=== PATIENT | male | born 1990 | race Caucasian/White ===

== ENCOUNTER 2016-09-26 21:20 | Emergency (ER) | payer MEDICAID, OTHER ==
[~2016-09-26] VITALS: Ht 175.3 cm; Wt 59.0 kg
[2016-09-26 21:29] VITALS: Ht 175.3 cm; Wt 59.0 kg
--- NOTE | 2016-09-26 22:27 | ERA ---
ER Documentation Chief Complaint Date/Time DATE: 09/26/16 TIME: 22:26 Chief Complaint states "i'm hearing radios in my head." HPI The patient is a 26-year-old male, presenting to the ER because of positive hallucination. He had similar symptoms previously and has seen a psychiatrist previously; however he stopped taking the medication. He denies suicidal or homicidal ideation, visual hallucination. He is homeless, denies headache, neck pain, chest pain, dyspnea, abdominal pain, vomiting, dysuria, diarrhea, constipation. He smokes a pack a day, denies drinking, smokes marijuana Past medical/surgical history: None ROS All systems reviewed and are negative except as per history of present illness. Allergies Allergies: Coded Allergies: No Known Drug Allergies (Verified Allergy, Unknown, 09/26/16) PMhx/Soc Medical and Surgical Hx: pt denies Medical Hx, pt denies Surgical Hx History of Surgery: No Anesthesia Reaction: No Hx Neurological Disorder: No Hx Respiratory Disorders: No Hx Cardiac Disorders: No Hx Psychiatric Problems: Yes (PT IS C/O AUDITORY HALLUCINATIONS; NO DTO/DTS) Hx Miscellaneous Medical Probl: No Hx Alcohol Use: Yes (WHEN HE CAN AFFORD) Hx Substance Use: Yes (MARIJUANA) Hx Tobacco Use: Yes Smoking Status: Current every day smoker Physical Exam Vitals Vital Signs Date Time Temp Pulse Resp B/P Pulse Ox O2 Delivery O2 Flow Rate FiO2 09/26/16 23:26 87 16 128/77 100 Room Air 09/26/16 21:29 98.2 93 20 126/71 96 Physical Exam Const: No acute distress. Unkempt Head: Atraumatic. Eyes: Normal Conjunctiva. ENT: Normal External Ears, Nose and Mouth. Neck: Full range of motion. No meningismus. Resp: Clear to auscultation bilaterally. Cardio: Regular rate and rhythm. Abd: Soft, non distended, normal bowel sounds, non tender. Skin: No petechiae or rashes. Back: No midline or flank tenderness. Ext: No cyanosis, or edema. Neur: Awake and alert. No focal deficit Psych: Depressed and hallucinated. Result Diagram: 09/26/16214409/26/162144 Results 24 hrs Laboratory Tests Test 09/26/16 21:45 White Blood Count 12.310^3/ul Red Blood Count 4.6410^6/ul Hemoglobin 15.3g/dl Hematocrit 42.9% Mean Corpuscular Volume 92.5fl Mean Corpuscular Hemoglobin 33.0pg Mean Corpuscular Hemoglobin Concent 35.7g/dl Red Cell Distribution Width 11.8% Platelet Count 93834^3/UL Mean Platelet Volume 8.8fl Neutrophils % 64.7% Lymphocytes % 24.1% Monocytes % 8.6% Eosinophils % 2.0% Basophils % 0.3% Nucleated Red Blood Cells % 0.0/100WBC Neutrophils # 7.910^3/ul Lymphocytes # 3.010^3/ul Monocytes # 1.110^3/ul Eosinophils # 0.210^3/ul Basophils # 0.010^3/ul Nucleated Red Blood Cells # 0.010^3/ul Urine Color YELLOW Urine Clarity SLIGHTLY CLOUDY Urine pH 7.0 Urine Specific [place] 1.017 Urine Ketones TRACEmg/dL Urine Nitrite NEGATIVEmg/dL Urine Bilirubin NEGATIVEmg/dL Urine Urobilinogen 2+mg/dL Urine Leukocyte Esterase TRACELeu/ul Urine Microscopic RBC 1/HPF Urine Microscopic WBC 1/HPF Urine Mucus MANY/HPF Urine Hemoglobin NEGATIVEmg/dL Urine Glucose NEGATIVEmg/dL Urine Total Protein NEGATIVEmg/dl Sodium Level 139mmol/L Potassium Level 3.9mmol/L Chloride Level 102mmol/L Carbon Dioxide Level 27mmol/L Anion Gap 14 Blood Urea Nitrogen 7mg/dl Creatinine 0.92mg/dl Glucose Level 103mg/dl Calcium Level 9.3mg/dl Total Bilirubin 0.3mg/dl Direct Bilirubin 0.00mg/dl Indirect Bilirubin 0.3mg/dl Aspartate Amino Transf (AST/SGOT) 20IU/L Alanine Aminotransferase (ALT/SGPT) 31IU/L Alkaline Phosphatase 94IU/L Total Protein 7.5g/dl Albumin 5.0g/dl Globulin 2.50g/dl Albumin/Globulin Ratio 2.00 Salicylates Level < 1.0mg/dl Urine Opiates Screen Negative Acetaminophen Level < 10.0ug/ml Urine Barbiturates Negative Urine Amphetamines Screen Negative Urine Benzodiazepines Screen Negative Urine Cocaine Screen Negative Urine Cannabinoids POSITIVE Ethyl Alcohol Level < 10.0mg/dl Procedures/MDM MEDICAL MAKING DECISION: The patient is a 26-year-old male, presenting with acute psychosis. The differential diagnoses considered include but are not limited to drug-induced psychosis, psychosis, decompensated psychiatric illness , depression, substance abuse Departure Diagnosis: Primary Impression: Psychosis Additional Impression: Substance abuse Condition: Stable Comments He is awaiting for telepsychiatrist evaluation The patient's blood pressure was elevated (>120/80) but appears stable without evidence of hypertension emergency or urgency. The patient was counseled about the risks of hypertension and urged to pursue outpatient monitoring and therapy within a week with their primary care physician. MARYBEL LANGSTON MD Sep 26, 2016 22:27
[2016-09-26 22:37] LABS: ADD SCAN DIFF NO
[2016-09-26 22:39] LABS: BASOPHILS % 0.3 % (0.0-2.0); EOSINOPHILS # 0.2 10^3/ul (0.0-0.5); HEMATOCRIT 42.9 % (42.0-52.0); HEMOGLOBIN 15.3 g/dl (14.0-18.0); LYMPHOCYTES % 24.1 % (15.0-51.0); MEAN CORPUSCULAR HGB CONC 35.7 g/dl (32.0-37.0); MEAN CORPUSCULAR VOLUME 92.5 fl (82.0-101.0); MEAN PLATELET VOLUME 8.8 fl (7.4-10.4); MONOCYTE # 1.1 10^3/ul (0.3-0.9); MONOCYTES % 8.6 % (0.0-11.0); NEUTROPHIL # 7.9 10^3/ul (1.6-7.5); NEUTROPHILS % 64.7 % (39.0-77.0); PLATELET COUNT 345 10^3/UL (140-415); RED BLOOD COUNT 4.64 10^6/ul (4.70-6.10); RED CELL DISTRIBUTION WIDTH 11.8 % (11.5-14.5); WHITE BLOOD COUNT 12.3 10^3/ul (4.8-10.8)
[2016-09-26 22:42] LABS: ADD UMIC YES; UR ASCORBIC ACID NEGATIVE (NEGATIVE); UR BILIRUBIN (Dip) NEGATIVE (NEGATIVE); UR BLOOD (Dip) NEGATIVE (NEGATIVE); UR CLARITY SLIGHTLY CLOUDY (CLEAR); UR COLOR YELLOW (YELLOW); UR GLUCOSE (Dip) NEGATIVE (NEGATIVE); UR KETONES (Dip) TRACE mg/dL (NEGATIVE); UR LEUKOCYTE ESTERASE (Dip) TRACE Leu/ul (NEGATIVE); UR MUCUS MANY /HPF (NONE SEEN); UR NITRITE (Dip) NEGATIVE (NEGATIVE); UR RBC 1 /HPF (0-5); UR SPECIFIC GRAVITY (Dip) 1.017 (1.003-1.030); UR TOTAL PROTEIN (Dip) NEGATIVE (NEGATIVE); UR UROBILINOGEN (Dip) 2+ mg/dL (NEGATIVE)
[2016-09-26 22:45] LABS: ALANINE AMINOTRANSFERASE 31 IU/L (13-69); ALKALINE PHOSPHATASE 94 IU/L (42-121); ANION GAP 14 (8-16); ASPARTATE AMINO TRANSFERASE 20 IU/L (15-46); BILIRUBIN,INDIRECT 0.3 mg/dl (0-1.1); BILIRUBIN,TOTAL 0.3 mg/dl (0.2-1.3); BLOOD UREA NITROGEN 7 mg/dl (7-20); CALCIUM 9.3 mg/dl (8.4-10.2); CARBON DIOXIDE 27 mmol/L (21-31); CHLORIDE 102 mmol/L (97-110); CREATININE 0.92 mg/dl (0.61-1.24); GLUCOSE 103 mg/dl (70-220); POTASSIUM 3.9 mmol/L (3.5-5.1); SODIUM 139 mmol/L (135-144); TOTAL PROTEIN 7.5 g/dl (6.1-8.1)
[2016-09-26 22:50] LABS: ACETAMINOPHEN < 10.0 ug/ml (10.0-30.0); ETHANOL < 10.0 mg/dl; SALICYLATE < 1.0 mg/dl (5.0-30.0)
[2016-09-26 23:08] LABS: BARBITURATES Negative (NEGATIVE); BENZODIAZEPINES Negative (NEGATIVE); CANNABINOIDS POSITIVE (NEGATIVE); COCAINE Negative (NEGATIVE); OPIATES Negative (NEGATIVE)
--- NOTE | 2016-09-27 00:17 | PSY ---
Date/Time of Note Date/Time of Note DATE: 09/26/16 TIME: 23:07 Psychiatric Subjective Eval Consent Pt consented to telemedicine: Yes Subjective Evaluation Patient location: emergency Chief Complaint: states "i'm hearing radios in my head." denies dto/dts Reason for consult: hearing voices History of present illness patient is a 26 yo male homeless with PPH of hearing voices who came to the ER stating that he has been hearing voices for the past 2 years and it is affection his functioning, it could be people talking or radio sounds, he denies feeling depressed, or anxious, denies any other psychotic symptoms, no past or current manic symptoms, he has been homeless and states that he got worst with homelessness, denies any si or hi, has been on haldol for it in the past but gave him side effect. Past psychiatric history no past admission Hospitalization: no Family History denies Medical history Problems Medical Problems: (1) Psychosis Status: Acute (2) Substance abuse Status: Acute Allergies: Coded Allergies: No Known Drug Allergies (Verified Allergy, Unknown, 09/26/16) Substance Abuse Substance abuse history: Yes (THC) Prior substance abuse treatmen: No Social History Marital status: single Level of education: hs DPA/Conservatorship: No Occupation/Residential: unemployed Psychiatric Objective Eval Review of Systems: Review of Systems: Not Applicable Physical Examination: Physical Examination: Applicable Sleep: Adequate Appetite: Adequate Energy: Adequate Interest: Adequate Mental Status Examination: Appearance: Groomed Eye Contact: Good Psychomotor Activity: Normal Behavior: Cooperative, Hostile Speech: Clear AFFECT: Appropriate Mood: Appropriate/Full Though Process: Linear Thought Content: Hallucinations Suicidal: No Homicidal: No On 72 hour hold: No Orientation: x3 Cognition: Alert Insight: Intact Judgement: Intact Attention Span: Intact Laboratory Results Laboratory Tests Test 09/26/16 21:45 White Blood Count 12.310^3/ul Red Blood Count 4.6410^6/ul Hemoglobin 15.3g/dl Hematocrit 42.9% Mean Corpuscular Volume 92.5fl Mean Corpuscular Hemoglobin 33.0pg Mean Corpuscular Hemoglobin Concent 35.7g/dl Red Cell Distribution Width 11.8% Platelet Count 12049^3/UL Mean Platelet Volume 8.8fl Neutrophils % 64.7% Lymphocytes % 24.1% Monocytes % 8.6% Eosinophils % 2.0% Basophils % 0.3% Nucleated Red Blood Cells % 0.0/100WBC Neutrophils # 7.910^3/ul Lymphocytes # 3.010^3/ul Monocytes # 1.110^3/ul Eosinophils # 0.210^3/ul Basophils # 0.010^3/ul Nucleated Red Blood Cells # 0.010^3/ul Urine Color YELLOW Urine Clarity SLIGHTLY CLOUDY Urine pH 7.0 Urine Specific [place] 1.017 Urine Ketones TRACEmg/dL Urine Nitrite NEGATIVEmg/dL Urine Bilirubin NEGATIVEmg/dL Urine Urobilinogen 2+mg/dL Urine Leukocyte Esterase TRACELeu/ul Urine Microscopic RBC 1/HPF Urine Microscopic WBC 1/HPF Urine Mucus MANY/HPF Urine Hemoglobin NEGATIVEmg/dL Urine Glucose NEGATIVEmg/dL Urine Total Protein NEGATIVEmg/dl Sodium Level 139mmol/L Potassium Level 3.9mmol/L Chloride Level 102mmol/L Carbon Dioxide Level 27mmol/L Anion Gap 14 Blood Urea Nitrogen 7mg/dl Creatinine 0.92mg/dl Glucose Level 103mg/dl Calcium Level 9.3mg/dl Total Bilirubin 0.3mg/dl Direct Bilirubin 0.00mg/dl Indirect Bilirubin 0.3mg/dl Aspartate Amino Transf (AST/SGOT) 20IU/L Alanine Aminotransferase (ALT/SGPT) 31IU/L Alkaline Phosphatase 94IU/L Total Protein 7.5g/dl Albumin 5.0g/dl Globulin 2.50g/dl Albumin/Globulin Ratio 2.00 Salicylates Level < 1.0mg/dl Urine Opiates Screen Negative Acetaminophen Level < 10.0ug/ml Urine Barbiturates Negative Urine Amphetamines Screen Negative Urine Benzodiazepines Screen Negative Urine Cocaine Screen Negative Urine Cannabinoids POSITIVE Ethyl Alcohol Level < 10.0mg/dl Assessment and Plan Assessment/Diagnosis [place] I: psychosis nos [place] II: deferred [place] III: as per record [place] IV: poor social support , homeless [place] V: gaf 65 Recommendation/Plan Medication Management prolixine 2 mg po bid and cogentin 1 mg po bid for 2 weeks for psychosis Follow-up/Disposition In my opinion,for this patient, outpatient care is the least restrictive option. ~ Based on available evidence, this condition CAN be safely treated at a lower level ~of care effective today. Patient is stable without clear and convincing evidence~ of imminent danger due to mental illness that requires acute inpatient psychiatric~ care as the least restrictive alternative. please refer patient to outpatient mental health clinic for pscyhotherapy and medication management~ PIERRE BEST MD Sep 27, 2016 00:17
[2016-09-27] MEDS ORDERED: PROLIX5 PO (00:40)
[2016-09-27] MEDS ORDERED: COG1 PO (00:41)
[2016-09-27 01:02] VITALS: BP 126/74; PULSE 88; RESP 16
== END 2016-09-27 01:03 | disposition home or self-care (01) ==
LOC: E/R 21:20
DX: F29 Unspecified psychosis not due to a substance or known physiological condition (principal); F12.10 Cannabis abuse, uncomplicated; F17.210 Nicotine dependence, cigarettes, uncomplicated
CPT/HCPCS: 36415; 80053; 80306; 80307; 81001; 85025; Z7502; 99284